=== PATIENT | male | born 1985 ===

== ENCOUNTER 2016-12-16 21:26 | Emergency (ER) | payer OTHER ==
[~2016-12-16] VITALS: Ht 175.3 cm; Wt 96.7 kg
[2016-12-16 21:33] VITALS: TEMP 36.7; Ht 175.3 cm; Wt 96.7 kg
[2016-12-16] MEDS ORDERED: OXYCODONE/ACETAMINOPHEN 5-325 TAB PO STA (21:46)
[2016-12-16] MEDS ORDERED: LIDOCAINE/EPINEPH/TETRACAINE 1 EA SYR EXT STA (21:46)
[2016-12-16] MEDS ORDERED: XYLOCAINE 1%/SOD BICARB 20 ML VIAL INFIL ONE (22:00)
--- NOTE | 2016-12-16 22:19 | DIAGNOSTIC IMAGING REPORT ---
FACIAL BONES-MXILLOFAC WITHOUT CT DOSE: HISTORY: Trauma Fall. Head injury. +LOC. Right side facial injury TECHNIQUE: Multiaxial CT images of the maxillofacial region were performed and reformatted in the coronal plane without the use of contrast. COMPARISON: None. FINDINGS: The visualized cervical spine, skull base, pterygoid plates, nasal bones, lamina papyracea, orbital floors, mandible, and zygomatic arches are intact. No fractures. The orbits are unremarkable. IMPRESSION: No fractures within the maxillofacial region. Mild right periorbital soft tissue edema The above report was generated using voice recognition software. It may contain grammatical, syntax or spelling errors. Electronically signed by: Michael Hamilton M.D. 12/16/2016 10:18 PM Dictated Date/Time: 12/16/2016 10:16 PM
--- NOTE | 2016-12-16 22:21 | DIAGNOSTIC IMAGING REPORT ---
HEAD WITHOUT CONTRAST (CT) CT DOSE: HISTORY: Trauma Fall. Head injury. +LOC TECHNIQUE: Multiaxial CT images of the head were performed without the use of intravenous contrast. Comparison: None. Findings: The paranasal sinuses and mastoid air cells are clear. The calvarium and skull base are intact. The ventricles and sulci are within normal limits. There is no mass, hematoma, midline shift, or acute infarct. Impression: No acute intracranial abnormality. The above report was generated using voice recognition software. It may contain grammatical, syntax or spelling errors. Electronically signed by: Michael Hamilton M.D. 12/16/2016 10:19 PM Dictated Date/Time: 12/16/2016 10:19 PM
--- NOTE | 2016-12-16 22:22 | DIAGNOSTIC IMAGING REPORT ---
CERVICAL SPINE W/O CT DOSE: 1148.20 mGy.cm HISTORY: Trauma Fall. Head injury. +LOC TECHNIQUE: Multiaxial CT images of the cervical spine were performed and reformatted in the sagittal and coronal plane without the use of contrast. COMPARISON: None. FINDINGS: No fractures. No subluxation. Prevertebral soft tissues and the C1-C2 interval are intact. No pneumothorax. IMPRESSION: No fractures within the cervical spine. The above report was generated using voice recognition software. It may contain grammatical, syntax or spelling errors. Electronically signed by: Michael Hamilton M.D. 12/16/2016 10:21 PM Dictated Date/Time: 12/16/2016 10:20 PM
--- NOTE | 2016-12-16 22:36 | DIAGNOSTIC IMAGING REPORT ---
LEFT SHOULDER MIN 2 VIEWS ROUTINE CLINICAL HISTORY: Fall. Head injury. +LOC. Left shoulder pain COMPARISON: None. DISCUSSION: Grade 1 separation left acromioclavicular joint. The glenohumeral joints are unremarkable. No evidence for fracture. There is no evidence for soft tissue swelling. IMPRESSION: Grade 1 separation left acromioclavicular joint The above report was generated using voice recognition software. It may contain grammatical, syntax or spelling errors. Electronically signed by: Michael Hamilton M.D. 12/16/2016 10:35 PM Dictated Date/Time: 12/16/2016 10:35 PM
--- NOTE | 2016-12-16 22:37 | DIAGNOSTIC IMAGING REPORT ---
CHEST 2 VIEWS ROUTINE CLINICAL HISTORY: Fall. Head injury. +LOC trauma COMPARISON STUDY: No previous studies for comparison. FINDINGS: The bones soft tissues and hemidiaphragms are normal. The cardiomediastinal silhouette is normal. The lungs are clear. The pulmonary vasculature is normal. IMPRESSION: Negative chest. The above report was generated using voice recognition software. It may contain grammatical, syntax or spelling errors. Electronically signed by: Michael Hamilton M.D. 12/16/2016 10:36 PM Dictated Date/Time: 12/16/2016 10:36 PM
[2016-12-16 23:21] VITALS: BP 136/74; PULSE 57; O2SAT 98
--- NOTE | 2016-12-17 00:15 | EMERGENCY ROOM VISIT NOTE ---
History First contact with patient: 21:40 Chief Complaint: LACERATION/CUT (NON-SUTURE) Stated Complaint: L SHOULDER PAIN, BROKEN R LOWER TOOTH Nursing Triage Summary: laceration to the right side of the face after falling into a metal ladder. also complains of some shoulder pain History of Present Illness The patient is a 31 year old male who presents to the Emergency Room with complaints of injuries after falling approximately 2 hours ago. The patient is currently incarcerated at [facility]. He states that he was hanging clothes up on a clothes line if his self. He states the clothes line is high and near the ceiling. He was standing on a swivel chair in order to reach his close, when he lost balance, fell, and struck the right side of his face and left shoulder. The patient believes he lost consciousness. He is complaining of pain and swelling. He has obvious laceration to the face and eyebrow but no other outward signs of trauma. He presents under the care of corrections officers for evaluation and treatment. He rates his discomfort a 10 /10 and has not taken anything [id number]. The patient considers himself usually healthy. He does not take blood thinners. He is reportedly up-to-date on his tetanus. Review of Systems More than 10 systems were reviewed and otherwise negative with the exception of history of present illness. Past Medical/Surgical History No chronic medical disease Family History No pertinent family history Social History Smoking Status: Former Smoker Current/Historical Medications No Active Prescriptions or Reported Meds Physical Exam Vital Signs Date Time Temp Pulse Resp B/P (MAP) Pulse Ox O2 Delivery O2 Flow Rate FiO2 12/16/16 23:21 57 20 136/74 98 12/16/16 21:33 36.7 69 20 128/77 98 Pain Rating (0-10): 10.0 Physical Exam VITALS: Vitals are noted on the nurse's note and reviewed by myself. Vital signs stable. GENERAL: Well-developed, well-nourished, white male, who is in no acute distress and resting comfortably. Patient is cooperative with the examination. HEAD: Ecchymosis and edema appreciated over the right sided maxillary sinus region into the right lower eyelid. Additionally there is a laceration over this area measuring approximately 3.5 cm in diameter. This is fairly linear but does gape and will require repair. There is a second 2.0 cm laceration through the lateral aspect of the upper eyelid that will also require repair. EARS: External ear normal. External auditory canals clear, tympanic membranes pearly new without erythema or effusion bilaterally. EYES: Pupils equal round and reactive to light and accommodation. Conjunctivae without injection, sclerae without icterus. Extraocular movements intact. NOSE: Patent, turbinates without inflammation or discharge. MOUTH: Mucous membranes moist. Tonsils are not enlarged. Pharynx without erythema, blood, or exudate. Uvula midline. Airway patent. NECK: Supple without nuchal rigidity. No lymphadenopathy. No thyromegaly. Cervical spine is nontender. HEART: Regular rate and rhythm without murmurs gallops or rubs. LUNGS: Clear to auscultation bilaterally without wheezes, rales or rhonchi. No retractions or accessory muscle use. ABDOMEN: Positive normal bowel sounds x 4. Soft, nontender, without masses or organomegaly. No guarding or rebound tenderness. MUSCULOSKELETAL: No muscle atrophy, erythema, or edema noted. Full range of motion without joint tenderness in all extremities. No tenderness to palpation. Normal gait. Strength 5/5 throughout. NEURO: Patient was alert and oriented to person place and time. CN II through XII grossly intact. Deep tendon reflexes 2+ throughout. No focal neurological deficits SKIN: The skin was without rashes, erythema, edema, or bruising. Capillary reflex less than 2 seconds. Medical Decision & Procedures ER Provider Diagnostic Interpretation: HEAD WITHOUT CONTRAST (CT) CT DOSE: HISTORY: Trauma Fall. Head injury. +LOC TECHNIQUE: Multiaxial CT images of the head were performed without the use of intravenous contrast. Comparison: None. Findings: The paranasal sinuses and mastoid air cells are clear. The calvarium and skull base are intact. The ventricles and sulci are within normal limits. There is no mass, hematoma, midline shift, or acute infarct. Impression: No acute intracranial abnormality. CERVICAL SPINE W/O CT DOSE: 1148.20 mGy.cm HISTORY: Trauma Fall. Head injury. +LOC TECHNIQUE: Multiaxial CT images of the cervical spine were performed and reformatted in the sagittal and coronal plane without the use of contrast. COMPARISON: None. FINDINGS: No fractures. No subluxation. Prevertebral soft tissues and the C1-C2 interval are intact. No pneumothorax. IMPRESSION: No fractures within the cervical spine. FACIAL BONES-MXILLOFAC WITHOUT CT DOSE: HISTORY: Trauma Fall. Head injury. +LOC. Right side facial injury TECHNIQUE: Multiaxial CT images of the maxillofacial region were performed and reformatted in the coronal plane without the use of contrast. COMPARISON: None. FINDINGS: The visualized cervical spine, skull base, pterygoid plates, nasal bones, lamina papyracea, orbital floors, mandible, and zygomatic arches are intact. No fractures. The orbits are unremarkable. IMPRESSION: No fractures within the maxillofacial region. Mild right periorbital soft tissue edema CHEST 2 VIEWS ROUTINE CLINICAL HISTORY: Fall. Head injury. +LOC trauma COMPARISON STUDY: No previous studies for comparison. FINDINGS: The bones soft tissues and hemidiaphragms are normal. The cardiomediastinal silhouette is normal. The lungs are clear. The pulmonary vasculature is normal. IMPRESSION: Negative chest. LEFT SHOULDER MIN 2 VIEWS ROUTINE CLINICAL HISTORY: Fall. Head injury. +LOC. Left shoulder pain COMPARISON: None. DISCUSSION: Grade 1 separation left acromioclavicular joint. The glenohumeral joints are unremarkable. No evidence for fracture. There is no evidence for soft tissue swelling. IMPRESSION: Grade 1 separation left acromioclavicular joint Medications Administered Medications (Trade) Dose Ordered Sig/Woody Route Start Time Stop Time Status Last Admin Dose Admin Oxycodone/ Acetaminophen (Percocet 5-325mg Tab) 2 tab NOW STAT PO 12/16/16 21:46 12/16/16 21:49 DC 12/16/16 21:53 2 TAB Tetracaine/ Epinephrine/ Lidocaine (L.e.t. Gel 4%/ 1:100/0.5%) 1 ea NOW STAT EXT 12/16/16 21:46 12/16/16 21:49 DC 12/16/16 21:53 1 EA Procedure Laceration repair. Patient elects to have their laceration repaired. Verbal consent was obtained to perform the procedure. There is an abundance of materials available for the procedure. Patient is not allergic to latex. Using sterile technique the wound was cleaned with Betadine. The area was sterilely draped. A combination of LET gel and 4 ml of 1% buffered lidocaine was used to anesthetize the 2 lacerations. Once the patient was anesthetized, the wounds were copiously irrigated under pressure with sterile saline. The wounds were explored and there were no deep structures injured such as tendons, bone, or significant blood vessels. The maxillary laceration was repaired using 5 simple interrupted 6-0 nylon sutures with the wound edges being well approximated. The eyebrow laceration was repaired using 3 simple interrupted 6- 0 nylon sutures with good wound edge is also being well approximated. Hemostasis was achieved. The area was cleaned with sterile saline and dressed with bacitracin ointment and bandage. Patient tolerated the procedure well without complications. Blood loss was negligible. ED Course Physical exam and history were performed. Nursing notes, EMR, and Medication List were personally reviewed. Patient appears to have fallen and suffered an injury to his head and face. Additionally is complaining of left shoulder pain although he does not have significant tenderness or range of motion difficulty in the shoulder. He has obvious outward sign of trauma. CTs and x-rays were performed. The patient was given 2 Percocet by mouth. Let gel was applied to his maxillary laceration. The patient CT scans are as above and do not show evidence of acute traumatic findings. His chest x-ray and shoulder x-ray appeared to show a grade 1 shoulder. The patient is currently incarcerated and will not have the ability to have a sling in [facility]. The patient's wounds were repaired as above and he tolerated the procedure well overall he appears stable for discharge and is to follow up with the [facility] for further care and management. The chart was completed utilizing [employer] Voice Recognition Software. Grammatical errors, random word insertions, pronoun errors, and incomplete sentences are an occasional consequence of this system due to software limitations, ambient noise, and hardware issues. Any formal questions or concerns about the content, text, or information contained within the body of this dictation should be directly addressed to the provider for clarification. . Medical Decision Differential diagnosis: Etiologies such as concussion, contusion, fracture, subdural hematoma, epidural hematoma, intraparenchymal hemorrhage, as well as other traumatic pathologies were entertained. Head Trauma GCS Score: 15 Medication Reconcilliation Current Medication List: was personally reviewed by me Blood Pressure Screening Patient's blood pressure: Normal blood pressure Impression Primary Impression: Fall Additional Impressions: Facial laceration Contusion of face Acromioclavicular joint separation Departure Information Dispostion Home / Self-Care Condition GOOD Prescriptions No Active Prescriptions or Reported Meds Forms HOME CARE DOCUMENTATION FORM, IMPORTANT VISIT INFORMATION Patient Instructions My [facility], ED Laceration All, ED Scar Tips to Minimize Additional Instructions You were seen and evaluated today on an emergency basis only. This is not a substitute for, or an effort to provide, complete comprehensive medical care. It is not possible to recognize and treat all injuries or illnesses in a single emergency department visit. For this reason it is recommended that you followup with [facility] for ongoing care and evaluation. For baseline pain relief you may alternate ibuprofen and acetaminophen every 4 hours for pain control. Take 600 mg ibuprofen (Advil) and then 4 hours later take 1000 mg acetaminophen (Tylenol). Do not take more than 3000 mg acetaminophen in a single day. Keep wound clean and dry. Do not allow any crusting or dried blood to accumulate on sutures. If this occurs, use a mild soap/water on a Q-tip to clean the wound. Do not use Peroxide to clean the wound as this can delay healing Use an antibiotic ointment like Bacitracin for 3-4 days, then let wound dry. You may bathe and shower as normal, but DO NOT SOAK the wound. Suture removal in about 5-7 days with the [facility], your Family Doctor, or in the ER. Return sooner for any signs of infection, increasing redness, swelling, or drainage. You are welcome to return to the emergency department anytime with new, worsening, or concerning symptoms. Problem Qualifiers
== END 2016-12-16 23:22 | disposition home or self-care (01) ==
LOC: C.EDB 21:30 → C.EDA 23:22
DX: S43.102A Unspecified dislocation of left acromioclavicular joint, initial encounter (principal); S01.81XA Laceration without foreign body of other part of head, initial encounter; W07.XXXA Fall from chair, initial encounter; Y92.149 Unspecified place in prison as the place of occurrence of the external cause; Z87.891 Personal history of nicotine dependence; Y99.8 Other external cause status; Y93.89 Activity, other specified

== ENCOUNTER 2018-01-17 19:08 | Emergency (ER) | payer OTHER ==
[~2018-01-17] VITALS: Ht 175.3 cm; Wt 92.9 kg
[2018-01-17 19:45] VITALS: TEMP 36.7; Ht 175.3 cm; Wt 92.9 kg
[2018-01-17] MEDS ORDERED: SODIUM CHLORIDE 0.9% 1000ML 1,000 ML IV STA (19:49)
--- NOTE | 2018-01-17 19:57 | EMERGENCY ROOM VISIT NOTE ---
History Report prepared by Rachel: Roxy Alvarez Under the Supervision of: Dr. Shar Lujan M.D. First contact with patient: 19:42 Chief Complaint: OTHER COMPLAINT Stated Complaint: INGESTED K2 / [facility] History of Present Illness The patient is a 33 year old male who presents to the Emergency Room with complaints of constant chest and abdominal pain beginning 2.5-3 hours ago. He notes the pain is extending into his groin, and he is also experiencing mild nausea. He states the pain began as soley chest discomfort, after her took what he believes to be K2. He states he took about 0.25 grams of K2, in the form of "mi grains," and began feeling unable to breathe. The patient notes he has not had a bowel movement or vomited since the incident. He denies an intent to harm self. Source of History: patient Onset: 2.5-3 hours ago Position: chest, abdomen Quality: other (discomfort) Timing: constant Note: Associated symptom: groin pain. Denies: intent to harm himself. Review of Systems See HPI for pertinent positives and negatives. A total of ten systems were reviewed and were otherwise negative. Past Medical & Surgical Medical Problems: (1) No chronic diseases present Family History No pertinent family history stated. Social History Smoking Status: Former Smoker Housing Status: other ([facility]) Occupation Status: other (prisoner) Current/Historical Medications No Active Prescriptions or Reported Meds Allergies Coded Allergies: No Known Allergies (Unverified , 12/16/16) Physical Exam Vital Signs Date Time Temp Pulse Resp B/P (MAP) Pulse Ox O2 Delivery O2 Flow Rate FiO2 01/17/18 22:21 76 20 119/72 96 01/17/18 21:55 72 01/17/18 21:14 73 20 125/80 98 Room Air 01/17/18 19:45 36.7 105 20 136/75 97 Room Air 01/17/18 19:44 83 Physical Exam GENERAL: Awake, alert, well-appearing, in no distress, in shackles. HENT: Normocephalic, atraumatic. Oropharynx unremarkable. EYES: Normal conjunctiva. Sclera non-icteric. NECK: Supple. No nuchal rigidity. RESPIRATORY: Clear to auscultation. No wheezes. Normal respiratory effort. CARDIAC: Normal rate. Normal rhythm. Extremities warm and well perfused. GI: Soft, non-distended. No tenderness to palpation. No rebound or guarding. No masses. RECTAL: Deferred. MUSCULOSKELETAL: Atraumatic. Chest examination reveals no tenderness. There is no CVA tenderness to palpation. LOWER EXTREMITIES: Calves are equal size bilaterally and non-tender. No edema NEURO: Normal sensorium. No sensory or motor deficits noted. No facial droop. SKIN: Warm and slightly sweaty. No rash or jaundice noted. Medical Decision & Procedures ER Provider Diagnostic Interpretation: Radiology results as stated below per my review and radiologist interpretation: KUB CLINICAL HISTORY: ABDOMINAL PAIN/GI COMPARISON STUDY: None. FINDINGS: The bowel gas pattern is normal. There is a moderate amount of stool within the colon. Visualized skeletal structures are unremarkable. No renal calculi are confidently identified although sensitivity is diminished on this exam. IMPRESSION: No evidence for a bowel obstruction. Electronically signed by: Antony Arthur M.D. 01/17/2018 8:39 PM Dictated Date/Time: 01/17/2018 8:39 PM CHEST ONE VIEW PORTABLE CLINICAL HISTORY: Abdominal pain. COMPARISON STUDY: Chest radiograph December 16, 2016. FINDINGS: Lung volumes are normal. There is no pneumothorax or pleural effusion. Lungs are clear. Cardiac size is normal. Mediastinal contours are normal. There is no evidence for pulmonary edema. IMPRESSION: No acute cardiopulmonary findings. Electronically signed by: Antony Arthur M.D. 01/17/2018 8:38 PM Dictated Date/Time: 01/17/2018 8:38 PM Laboratory Results 01/17/18 20:36 Red Blood Count 5.10, Mean Corpuscular Volume 83.3, Mean Corpuscular Hemoglobin 29.0, Mean Corpuscular Hemoglobin Concent 34.8, Mean Platelet Volume 9.6, Neutrophils (%) (Auto) 65.3, Lymphocytes (%) (Auto) 25.8, Monocytes (%) (Auto) 8.2, Eosinophils (%) (Auto) 0.4, Basophils (%) (Auto) 0.2, Neutrophils # (Auto) 6.90, Lymphocytes # (Auto) 2.72, Monocytes # (Auto) 0.87, Eosinophils # (Auto) 0.04, Basophils # (Auto) 0.02 01/17/18 20:36 Test 01/17/18 20:36 8/20/18 20:48 White Blood Count 10.56 K/uL (4.8-10.8) Red Blood Count 5.10 M/uL (4.7-6.1) Hemoglobin 14.8 g/dL (14.0-18.0) Hematocrit 42.5 % (42-52) Mean Corpuscular Volume 83.3 fL (80-100) Mean Corpuscular Hemoglobin 29.0 pg (25-34) Mean Corpuscular Hemoglobin Concent 34.8 g/dl (32-36) Platelet Count 262 K/uL (130-400) Mean Platelet Volume 9.6 fL (7.4-10.4) Neutrophils (%) (Auto) 65.3 % Lymphocytes (%) (Auto) 25.8 % Monocytes (%) (Auto) 8.2 % Eosinophils (%) (Auto) 0.4 % Basophils (%) (Auto) 0.2 % Neutrophils # (Auto) 6.90 K/uL (1.4-6.5) Lymphocytes # (Auto) 2.72 K/uL (1.2-3.4) Monocytes # (Auto) 0.87 K/uL (0.11-0.59) Eosinophils # (Auto) 0.04 K/uL (0-0.5) Basophils # (Auto) 0.02 K/uL (0-0.2) RDW Standard Deviation 38.7 fL (36.4-46.3) RDW Coefficient of Variation 12.9 % (11.5-14.5) Immature Granulocyte % (Auto) 0.1 % Immature Granulocyte # (Auto) 0.01 K/uL (0.00-0.02) Anion Gap 8.0 mmol/L (3-11) Est Creatinine Clear Calc Drug Dose 128.2 ml/min Estimated GFR () 124.7 Estimated GFR (Non- 107.6 BUN/Creatinine Ratio 13.3 (10-20) Calcium Level 8.5 mg/dl (8.5-10.1) Total Bilirubin 1.1 mg/dl (0.2-1) Direct Bilirubin 0.3 mg/dl (0-0.2) Aspartate Amino Transf (AST/SGOT) 12 U/L (15-37) Alanine Aminotransferase (ALT/SGPT) 20 U/L (12-78) Alkaline Phosphatase 54 U/L (45-117) Total Protein 7.0 gm/dl (6.4-8.2) Albumin 3.7 gm/dl (3.4-5.0) Lipase 265 U/L (73-393) Thyroid Stimulating Hormone (TSH) 0.886 uIu/ml (0.300-4.500) Salicylates Level < 1.7 mg/dl (2.8-20) Acetaminophen Level < 2 ug/ml (10-30) Ethyl Alcohol mg/dL < 3.0 mg/dl (0-3) Urine Color YELLOW Urine Appearance CLEAR (CLEAR) Urine pH 6.5 (4.5-7.5) Urine Specific [place] 1.010 (1.000-1.030) Urine Protein NEG (NEG) Urine Glucose (UA) NEG (NEG) Urine Ketones NEG (NEG) Urine Occult Blood NEG (NEG) Urine Nitrite NEG (NEG) Urine Bilirubin NEG (NEG) Urine Urobilinogen NEG (NEG) Urine Leukocyte Esterase NEG (NEG) Urine Opiates Screen NEG (NEG) Urine Methadone, Qualitative NEG (NEG) Urine Barbiturates NEG (NEG) Urine Phencyclidine (PCP) Level NEG (NEG) Ur Amphetamine/Methamphetamine NEG (NEG) MDMA (Ecstasy) Screen NEG (NEG) Urine Benzodiazepines Screen NEG (NEG) Urine Cocaine Metabolite NEG (NEG) Urine Marijuana (THC) NEG (NEG) Laboratory results reviewed by me Medications Administered Medications (Trade) Dose Ordered Sig/Woody Route Start Time Stop Time Status Last Admin Dose Admin Sodium Chloride 1,000 ml @ 999 mls/hr Q1H1M STAT IV 01/17/18 19:49 01/17/18 20:49 DC 01/17/18 19:49 999 MLS/HR Magnesium Citrate (Citrate Of Magnesia Soln) 50 ml NOW ONCE PO 01/17/18 22:00 01/17/18 22:03 DC 01/17/18 22:13 50 ML ED Course 1941: The patient was evaluated in room B11B. A complete history and physical exam was performed. 1948: Ordered Sodium Chloride 1000 ml @ 999 mls/hr IV 2199: Ordered Magnesium Citrate 50 ml PO 2204: I reevaluated the patient. Discussed results and discharge instructions: he verbalized understanding and agreement. The patient is ready for discharge Medical Decision Etiologies such as appendicitis, diverticulitis, PUD, biliary pathology, UTI, pancreatitis, obstruction, mesenteric ischemia, aortic pathology, infections, inflammatory bowel disease, renal colic, as well as others were entertained. Patient reportedly ingested a quarter size amount some K2 and presented today around 430. Sometime before that had an x-ray with concern for ingesting something else. Denies this is an attempt to harm himself. Appears to likely be concealment episode. Did receive Narcan at the [facility] prior to transfer to some sedation. Patient complains of some GI discomfort at this point and tightness of his chest and abdomen. Benign abdomen to palpation. Likely this is related to the Narcan and his ingestion. Well-appearing. Given some fluid rehydration. Toxicology labs were sent including Tylenol and salicylate; negative. X-rays of the chest and abdomen were completed. X-rays without findings of foreign body. Benign abdomen and doubt obstruction. No relapse of altered mental status after several hours of observation do not feel requires additional inpatient monitoring at this time. Symptoms improved here regarding his abdominal cramping. No evidence of significant toxicologic ingestion. Patient is complaining of some constipation requested medicine to assist with this. Given a dose of mag citrate; rx for miralax. Medication Reconcilliation Current Medication List: was personally reviewed by me Blood Pressure Screening Patient's blood pressure: Normal blood pressure Blood pressure disposition: Did not require urgent referral Impression Primary Impression: Overdose Additional Impression: Ingestion of unknown drug Scribe Attestation The scribe's documentation has been prepared under my direction and personally reviewed by me in its entirety. I confirm that the note above accurately reflects all work, treatment, procedures, and medical decision making performed by me. Departure Information Dispostion Other ([facility]) Prescriptions No Active Prescriptions or Reported Meds Referrals Doyle DUNN (PCP) Forms HOME CARE DOCUMENTATION FORM, IMPORTANT VISIT INFORMATION, WORK / SCHOOL INSTRUCTIONS Patient Instructions My [facility] Additional Instructions Please continue to maintain good hydration. Utilize the prescribed medication to help have regular daily soft bowel movements. If you experience new or concerning symptoms please contact [facility] staff to be evaluated in the infirmary. The material and/or drugs you ingested today may cause some GI upset and on sensations. Please avoid ingesting items or drugs in the future. No evidence of any foreign bodies on x-rays of your chest or abdomen pelvis today. Problem Qualifiers Primary Impression: Overdose Encounter type: initial encounter Injury intent: undetermined intent Qualified Codes: T50.904A - Poisoning by unspecified drugs, medicaments and biological substances, undetermined, initial encounter Additional Impression: Ingestion of unknown drug Encounter type: initial encounter Injury intent: undetermined intent Qualified Codes: T50.904A - Poisoning by unspecified drugs, medicaments and biological substances, undetermined, initial encounter
--- NOTE | 2018-01-17 20:39 | DIAGNOSTIC IMAGING REPORT ---
CHEST ONE VIEW PORTABLE CLINICAL HISTORY: Abdominal pain. COMPARISON STUDY: Chest radiograph December 16, 2016. FINDINGS: Lung volumes are normal. There is no pneumothorax or pleural effusion. Lungs are clear. Cardiac size is normal. Mediastinal contours are normal. There is no evidence for pulmonary edema. IMPRESSION: No acute cardiopulmonary findings. Electronically signed by: Antony Arthur M.D. 01/17/2018 8:38 PM Dictated Date/Time: 01/17/2018 8:38 PM
--- NOTE | 2018-01-17 20:40 | DIAGNOSTIC IMAGING REPORT ---
KUB CLINICAL HISTORY: ABDOMINAL PAIN/GI COMPARISON STUDY: None. FINDINGS: The bowel gas pattern is normal. There is a moderate amount of stool within the colon. Visualized skeletal structures are unremarkable. No renal calculi are confidently identified although sensitivity is diminished on this exam. IMPRESSION: No evidence for a bowel obstruction. Electronically signed by: Antony Arthur M.D. 01/17/2018 8:39 PM Dictated Date/Time: 01/17/2018 8:39 PM
[2018-01-17 20:54] LABS: BASO % 0.2 %; BASO ABS # 0.02 K/uL (0-0.2); EOS % 0.4 %; EOS ABS # 0.04 K/uL (0-0.5); HEMATOCRIT 42.5 % (42-52); HEMOGLOBIN 14.8 g/dL (14.0-18.0); IG# 0.01 K/uL (0.00-0.02); LYMPH % 25.8 %; LYMPH ABS # 2.72 K/uL (1.2-3.4); MEAN CELL VOLUME 83.3 fL (80-100); MEAN CORPUSCULAR HGB CONC 34.8 g/dl (32-36); MEAN PLATELET VOLUME 9.6 fL (7.4-10.4); MONO % 8.2 %; MONO ABS # 0.87 K/uL (0.11-0.59); NEUT % 65.3 %; PLATELET COUNT 262 K/uL (130-400); RED CELL DISTRIBUTION WIDTH CV 12.9 % (11.5-14.5); RED CELL DISTRIBUTION WIDTH SD 38.7 fL (36.4-46.3); WHITE BLOOD COUNT 10.56 K/uL (4.8-10.8)
[2018-01-17 21:18] LABS: ALBUMIN 3.7 gm/dl (3.4-5.0); CALCIUM 8.5 mg/dl (8.5-10.1); CREATININE 0.94 mg/dl (0.60-1.40); POTASSIUM 3.5 mmol/L (3.5-5.1)
[2018-01-17] MEDS ORDERED: MAGNESIUM CITRATE 296 ML/BTL PO ONE (22:00)
[2018-01-17 22:21] VITALS: BP 119/72; PULSE 76; O2SAT 96
== END 2018-01-17 22:24 | disposition home or self-care (01) ==
LOC: EDBD 19:08 → C.ED 19:09 → C.EDB 22:24
DX: T50.904A Poisoning by unspecified drugs, medicaments and biological substances, undetermined, initial encounter (principal); T65.94XA Toxic effect of unspecified substance, undetermined, initial encounter; X58.XXXA Exposure to other specified factors, initial encounter; Z87.891 Personal history of nicotine dependence